=== PATIENT | male | born 1955 | race Hispanic/Latino ===

== ENCOUNTER 2020-12-11 08:46 | Outpatient (CLI) | payer MEDICARE, OTHER | END 2020-12-11 08:47 | disposition home or self-care (01) | LOC: CSHCT 08:46 | PROVIDERS: ATTEND Orthopaedic Surgery | DX: M50.121 Cervical disc disorder at C4-C5 level with radiculopathy (principal); M47.22 Other spondylosis with radiculopathy, cervical region | CPT/HCPCS: 72125 ==

== ENCOUNTER 2023-04-23 07:17 | Outpatient (CLI) | payer MEDICARE, OTHER ==
[2023-04-23] MEDS ORDERED: Iopamidol 300 61% 100 ML VIAL FS ONE (12:13)
== END 2023-04-23 07:18 | disposition home or self-care (01) ==
LOC: CSHCT 07:17
PROVIDERS: ATTEND Urology
DX: C64.2 Malignant neoplasm of left kidney, except renal pelvis (principal)
CPT/HCPCS: 71046; 74160; 82565; Q9967